=== PATIENT | male | born 1990 | race Two or more races ===

== ENCOUNTER 2024-09-22 10:29 | Emergency (ER) | payer OTHER ==
[~2024-09-22] VITALS: Ht 177.8 cm; Wt 47.6 kg
[~2024-09-22 10:29] MED LIST: ONDANSETRON ODT8 MG PO; PEPCID AC20 MG PO
[2024-09-22] MEDS ORDERED: ACETAMINOPHEN 500 MG GEL..CAP PO ONE ×2 (13:00→13:44)
[2024-09-22 14:29] LABS: HEMATOCRIT 48.3 % (39.0-48.0); HEMOGLOBIN 16.5 g/dL (13-16.00); MEAN CELL VOLUME 84.1 fL (80.0-100.00); MEAN CORPUSCULAR HEMOGLOBIN 28.8 pg (27.00-32.0); MEAN CORPUSCULAR HGB CONC 34.2 g/dl (32.0-36.0); PLATELET COUNT 166 K/uL (150-450); RED BLOOD COUNT 5.74 M/uL (4.00-6.00); RED CELL DISTRIBUTION WIDTH 13.9 % (11.5-14.5)
[2024-09-22 14:56] LABS: CALCIUM 9.5 mg/dL (8.5-10.1); CREATININE SERUM 1.02 mg/dL (0.70-1.30); GFR 84.64; POTASSIUM 3.8 mEq/L (3.5-5.1)
[2024-09-22] MEDS ORDERED: OSELTAMIVIR PHOSPHATE 75 MG CAPSULE PO ONE (16:35)
[2024-09-22] MEDS ORDERED: OSELTAMIVIR PHOSPHATE 75 MG CAPSULE PO STA (16:41)
== END 2024-09-22 16:53 | disposition home or self-care (01) ==
LOC: ER 10:31
PROVIDERS: Emergency Medicine
DX: B34.9 Viral infection, unspecified (principal); J10.1 Influenza due to other identified influenza virus with other respiratory manifestations; R53.81 Other malaise; Z20.822 Contact with and (suspected) exposure to COVID-19; Z91.018 Allergy to other foods